=== PATIENT | female | born 1980 | race Hispanic/Latino ===

== ENCOUNTER 2021-11-28 05:52 | Day surgery (SDC) | payer OTHER ==
[2021-11-23 16:38] LABS: Hemoglobin 11.5 g/dL (12.0-15.5); Mean Corpuscular HGB CONC 32.1 g/dL (32.0-36.0); Mean Corpuscular Hemoglobin 30.2 pg (27.0-33.0); Mean Platelet Volume 11.1 fl (7.4-10.4); Platelet Count 195 10x3/uL (150-450); RBC Distribution Width 15.1 % (11.5-14.5); Red Blood Cell (RBC) Count 3.81 10x6/uL (3.90-5.03); White Blood Cell (WBC) Count 11.2 10x3/uL (3.5-10.5)
[2021-11-23 17:09] LABS: BHCG - Serum Negative (NEGATIVE); Pregs Control Background? CLEAR/WHITE (CLR/WHITE); Pregs Control Bar Appear? YES (CONTROL BAR)
[2021-11-24 16:34] LABS: SARS-CoV-2 PCR by NAA Not Detected (NotDetected)
[2021-11-28] MEDS ORDERED: CeleCOXIB 100 MG CAP ONE (06:29)
[2021-11-28] MEDS ORDERED: Gabapentin 300 MG CAP ONE (06:29)
[2021-11-28] MEDS ORDERED: Lidocaine 1% MPF 2 ML VIAL ONE (06:29)
[2021-11-28] MEDS ORDERED: Famotidine/PF 20 mg/2ml Vial ONE (06:30)
[2021-11-28] MEDS ORDERED: Levofloxacin 500 mg/D5W 100 ml Premix Bag ONE (06:30)
[2021-11-28] MEDS ORDERED: EPINEPHrine 1 MG/ML AMP ONE (06:31)
[2021-11-28] MEDS ORDERED: Bupivacaine PF 0.5% 30 ML VIAL ONE (06:32)
[2021-11-28] MEDS ORDERED: Lidocaine 4% Topical Sol 50 ML BOT ONE (06:36)
[2021-11-28] MEDS ORDERED: Fentanyl 250 MCG/5 ML VIAL ONE (06:49)
[2021-11-28] MEDS ORDERED: Rocuronium Bromide 10 MG/ML (10ML VIAL) ONE (06:49)
[2021-11-28] MEDS ORDERED: Ondansetron PF 4 MG/2 ML Vial ONE ×2 (06:49→13:06)
[2021-11-28] MEDS ORDERED: Ketorolac Tromethamine 30 MG/ML VIAL ONE (06:49)
[2021-11-28] MEDS ORDERED: Midazolam HCl 2 mg/2 ml Vial ONE ×2 (06:49→07:25)
[2021-11-28] MEDS ORDERED: Dexamethasone 20 MG/5 ML VIAL ONE (06:49)
[2021-11-28] MEDS ORDERED: Glycopyrrolate 0.2 MG/ML 5 ML SYRINGE ONE (06:49)
[2021-11-28] MEDS ORDERED: PROPOFOL 20 ML ONE ×2 (06:49→09:01)
[2021-11-28] MEDS ORDERED: Lidocaine 1% PF 5 ML VIAL ONE (06:49)
[2021-11-28] MEDS ORDERED: Fentanyl 100 MCG/2 ML VIAL ONE (09:32)
== END 2021-11-28 13:20 | disposition home or self-care (01) ==
LOC: CSHSDC 05:52
PROVIDERS: ATTEND Obstetrics & Gynecology
PROC: 0UT14ZZ Resection of Left Ovary, Percutaneous Endoscopic Approach (ICD-10-PCS; principal; 2021-11-28)
PROC: 0UT94ZZ Resection of Uterus, Percutaneous Endoscopic Approach (ICD-10-PCS; principal; 2021-11-28)
PROC: 0UT74ZZ Resection of Bilateral Fallopian Tubes, Percutaneous Endoscopic Approach (ICD-10-PCS; principal; 2021-11-28)
DX: D25.2 Subserosal leiomyoma of uterus (principal); D27.1 Benign neoplasm of left ovary; N83.291 Other ovarian cyst, right side; Z88.0 Allergy status to penicillin; Z20.822 Contact with and (suspected) exposure to COVID-19
CPT/HCPCS: 84703; 85027; 86850; 86900; 86901; 88307; C1776; J0171; J1100; J1885; J1956; J2250; J2405; J2704; J3010; J3490; S0020; S0028; U0003; U0005